=== PATIENT | female | born 1940 | race Caucasian/White ===

== ENCOUNTER 2020-06-27 05:46 | Day surgery (SDC) | payer MEDICARE, BC ==
[2020-06-19 14:15] LABS: BASOPHILS # (AUTO) 0.1 X10'3 (0-0.2); BASOPHILS % (AUTO) 1.3 % (0-1); EOSINOPHILS # (AUTO) 0.2 X10'3 (0-0.9); EOSINOPHILS % (AUTO) 3.4 % (0-6); LYMPHOCYTES # (AUTO) 0.8 X10'3 (1.1-4.8); LYMPHOCYTES % (AUTO) 13.9 % (21-51); MEAN CORPUSCULAR HEMOGLOBIN 31.7 PG (27.0-31.0); MEAN CORPUSCULAR VOLUME 93.2 FL (78-98); MEAN PLATELET VOLUME 8.4 FL (7.4-10.4); MONOCYTES # (AUTO) 0.3 X10'3 (0-0.9); MONOCYTES % (AUTO) 5.3 % (2-12); NEUTROPHILS # (AUTO) 4.2 X10'3 (1.8-7.7); NEUTROPHILS % (AUTO) 76.1 % (42-75); PRE OP HEMATOCRIT 46.5 % (35.0-45.0); PRE OP HEMOGLOBIN 15.8 g/dL (12.0-16.0); PRE OP PLATELET COUNT 201 X10'3 (140-440); RED BLOOD COUNT 4.99 X10'6 (4.20-5.60); RED CELL DISTRIBUTION WIDTH 13.6 % (11.5-14.5)
[2020-06-19 14:25] LABS: ALBUMIN 4.4 G/DL (3.4-5.0); ALKALINE PHOSPHATASE 63 IU/L (46-116); BLOOD UREA NITROGEN 30 MG/DL (7-18); BUN/CREATININE RATIO 20.4 (6.6-38.0); CALCIUM 11.4 MG/DL (8.5-10.1); CHLORIDE 103 MMOL/L (99-107); CREATININE 1.47 MG/DL (0.40-0.90); PRE OP ALT 60 U/L (30-65); PRE OP ANION GAP 12 (8-16); PRE OP AST 72 U/L (10-37); PRE OP BILIRUB, TOTAL 0.6 MG/DL (0.0-1.0); PRE OP GLUCOSE 192 MG/DL (70-104); PRE OP SODIUM 140 MMOL/L (135-145); TOTAL CARBON DIOXIDE 25.2 MMOL/L (24-32); TOTAL PROTEIN 8.7 G/DL (6.4-8.2); eGFR 34 ML/MIN
[~2020-06-27] VITALS: Ht 165.1 cm; Wt 102.2 kg
[2020-06-27] VITALS (7 sets, daily range): BP systolic 118–143; BP diastolic 69–86
[~2020-06-27 05:46] MED LIST: ACET-1133 PO; ALLO300T8 PO; ASPI-1265 PO; ATOR20TA PO; CELE-193 PO; DULO-31 PO; FENO160T4 PO; FLUT16SP26 BOTHNARES; FURO40TA4 PO; GABA-530 PO; LOSA25TA96 PO; MILK500C PO; MULT-381 PO; OMEG10006 PO; POTA-82 PO; VITA150T PO; famotidine 20mg tablet PO ONE; ringers solution, lacted 1,000 ML IV SCH
[2020-06-27] MEDS ORDERED: ceFAZolin 2gm in dextrose, iso 50 ML IV ONE (06:00)
[2020-06-27] MEDS ORDERED: BUPIVAcaine/PF 2.5 mg/ml (0.25%) 30ml vial ONE (06:36)
[2020-06-27] MEDS ORDERED: LIDOcaine 0.5% (5mg/ml) 50ml vial ONE (07:11)
[2020-06-27] MEDS ORDERED: ringers solution, lacted 1,000 ML IV SCH (07:38)
[2020-06-27] MEDS ORDERED: morphine 2 MG/ML inj. syringe IV PRN (07:40)
[2020-06-27] MEDS ORDERED: proCHLORperazine 10 MG/2 ml inj IV PRN (07:40)
[2020-06-27] MEDS ORDERED: morphine 4 MG/ML inj SYRINge IV PRN (07:40)
[2020-06-27] MEDS ORDERED: meperidine/PF 25mg/ml syringe IV PRN ×3 (07:40)
[2020-06-27] MEDS ORDERED: ondansetron/PF 4mg/2ml inj IV PRN (07:40)
[2020-06-27] MEDS ORDERED: fentaNYL/PF 50MCG/1 ML 2ML syringe ONE (07:48)
[2020-06-27] MEDS ORDERED: midazolam 2 mg/2 ml injection ONE (07:49)
[2020-06-27] MEDS ORDERED: propofol inj 20 ML IV ONE (08:51)
--- NOTE | 2020-06-27 08:57 | NUR ---
Received from OR via [facility], accompanied by Anesthesiologist DR BUCKLEY and report given by Anesthesiolgist. PATIENT A&OX4, DENIES PAIN, V/S WNL, NEUROVASCULAR CHECKS INTACT, 20G PIV LUE, SCD ON, DRESSING TO RIGHT WRIST CDI ELEVATED WITH ICEBAG APPLIED.
--- NOTE | 2020-06-27 09:57 | NUR ---
PATIENT A&OX4, DENIES PAIN, V/S WNL, NEUROVASCULAR CHECKS INTACT, 20G PIV LUE D/C, SCD OFF, DRESSING TO RIGHT WRIST CDI ELEVATED WITH ICEBAG APPLIED. I HAVE REVIEWED D/C INSTRUCTIONS WITH PATIENT AND FAMILY AND THEY HAVE VERBALIZED UNDERSTANDING. PATIENT D/C HOME WITH ALL BELONGINGS AND FAMILY GAVE TRANSPORT HOME. Pt has pain meds at home. Pt knows to wear O2 on way home because of her sleep apnea and to wear Bipap as soon as she arrives hoem. She has received extensive education on respiratory care.
== END 2020-06-27 09:57 | disposition home or self-care (01) ==
LOC: PAS 05:46
PROVIDERS: ATTEND Orthopaedic Surgery Hand Surgery
DX: G56.01 Carpal tunnel syndrome, right upper limb (principal); M65.331 Trigger finger, right middle finger; M65.341 Trigger finger, right ring finger; M18.0 Bilateral primary osteoarthritis of first carpometacarpal joints; M10.9 Gout, unspecified; G47.30 Sleep apnea, unspecified; F31.9 Bipolar disorder, unspecified; I27.20 Pulmonary hypertension, unspecified; E66.9 Obesity, unspecified; Z68.36 Body mass index [BMI] 36.0-36.9, adult; Z11.59 Encounter for screening for other viral diseases; Z79.899 Other long term (current) drug therapy; Z90.710 Acquired absence of both cervix and uterus; Z98.890 Other specified postprocedural states; Z95.5 Presence of coronary angioplasty implant and graft; Z88.5 Allergy status to narcotic agent
CPT/HCPCS: 25310; 25447; 26055; 36415; 64721; 80053; 82948; 85025; 93005; J2001; J2250; J2704; J3010; J3490; J7120; U0003; A4215; A4618; A6449; A7000

== ENCOUNTER 2021-04-03 07:15 | Day surgery (SDC) | payer MEDICARE, BC ==
[2021-03-27 15:33] LABS: BASOPHILS % (AUTO) 0.8 % (0-1); EOSINOPHILS # (AUTO) 0.1 X10'3 (0-0.9); LYMPHOCYTES # (AUTO) 0.7 X10'3 (1.1-4.8); LYMPHOCYTES % (AUTO) 14.3 % (21-51); MEAN CORPUSCULAR HEMOGLOBIN 31.7 PG (27.0-31.0); MEAN CORPUSCULAR HGB CONC 34.2 g/dL (33.0-36.5); MEAN CORPUSCULAR VOLUME 92.7 FL (78-98); MEAN PLATELET VOLUME 7.9 FL (7.4-10.4); MONOCYTES # (AUTO) 0.3 X10'3 (0-0.9); MONOCYTES % (AUTO) 6.4 % (2-12); NEUTROPHILS # (AUTO) 3.5 X10'3 (1.8-7.7); NEUTROPHILS % (AUTO) 75.5 % (42-75); PRE OP HEMATOCRIT 40.7 % (35.0-45.0); PRE OP HEMOGLOBIN 13.9 g/dL (12.0-16.0); PRE OP PLATELET COUNT 171 X10'3 (140-440); RED BLOOD COUNT 4.39 X10'6 (4.20-5.60); RED CELL DISTRIBUTION WIDTH 13.3 % (11.5-14.5)
[2021-03-27 15:54] LABS: ALBUMIN 3.9 G/DL (3.4-5.0); ALKALINE PHOSPHATASE 51 IU/L (46-116); BLOOD UREA NITROGEN 29 MG/DL (7-18); BUN/CREATININE RATIO 24.2 (6.6-38.0); CALCIUM 10.1 MG/DL (8.5-10.1); CHLORIDE 107 MMOL/L (99-107); PRE OP ALT 41 U/L (30-65); PRE OP ANION GAP 10 (8-16); PRE OP AST 40 U/L (10-37); PRE OP BILIRUB, TOTAL 0.4 MG/DL (0.0-1.0); PRE OP GLUCOSE 152 MG/DL (70-104); PRE OP POTASSIUM 4.1 MMOL/L (3.4-5.1); PRE OP SODIUM 141 MMOL/L (135-145); TOTAL CARBON DIOXIDE 24.1 MMOL/L (24-32); TOTAL PROTEIN 7.9 G/DL (6.4-8.2); eGFR 43 ML/MIN
[~2021-04-03] VITALS: Ht 167.6 cm; Wt 100.7 kg
[~2021-04-03 07:15] MED LIST changes: +BUPIVAcaine/PF 2.5mg/ml (0.25%) 10ml vial ONE; +METF-950 PO; +cefazolin/dext.iso 2gm/100ml IV ONE
[2021-04-03 07:30] VITALS: BP 120/73
[2021-04-03] MEDS ORDERED: fentaNYL/PF 50MCG/1 ML 2ML syringe ONE ×2 (09:39→10:52)
[2021-04-03] MEDS ORDERED: midazolam 1 mg/ML 2ml injection ONE (09:40)
[2021-04-03] MEDS ORDERED: LIDOcaine 1%/PF 5ML 10 MG/ML VIAL ONE (09:41)
[2021-04-03] MEDS ORDERED: propofol inj 20 ML IV ONE (09:41)
[2021-04-03] MEDS ORDERED: ondansetron/PF 4mg/2ml inj IV PRN (09:55)
[2021-04-03] MEDS ORDERED: ringers solution, lacted 1,000 ML IV SCH (09:55)
[2021-04-03] MEDS ORDERED: fentaNYL/PF 50MCG/1 ML 2ML syringe IV PRN (09:55)
[2021-04-03] MEDS ORDERED: HYDROmorphone/PF 0.2 MG/ML SYRINGE IV PRN ×2 (09:55)
[2021-04-03] MEDS ORDERED: LIDOcaine 0.5% (5mg/ml) 50ml vial ONE (10:01)
[2021-04-03] MEDS ORDERED: BUPIVAcaine/PF 2.5mg/ml (0.25%) 10ml vial ONE (10:11)
[2021-04-03 11:08] VITALS: BP 101/57
--- NOTE | 2021-04-03 11:08 | NUR ---
Received from OR via [facility] , accompanied by Anesthesiologist LIO and report given by Anesthesiolgist. PATIENT WITH 20G PIV IN RIGHT UE RUNNING LR AT 100. LEFT UE IN SPLINT AND WITH NO SENSATION TO FINGERS AND THUMB FROM NERVE BLOCK. DRESSING IS CDI AND VSS. Addendum: 04/03/21 at 1125 by Rolando Finnegan RN, RN Amended: Links added.
--- NOTE | 2021-04-03 11:18 | NUR ---
139 BG UPON ARRIVAL TO RR. Addendum: 04/03/21 at 1126 by Rolando Alvarez - JOHNNY RN Amended: Links added.
[2021-04-03 11:20] VITALS: BP 108/62
[2021-04-03 11:30] VITALS: BP 111/58
[2021-04-03 11:40] VITALS: BP 116/66
== END 2021-04-03 11:48 | disposition home or self-care (01) ==
LOC: PAS 07:15
PROVIDERS: ATTEND Orthopaedic Surgery Hand Surgery
DX: M18.12 Unilateral primary osteoarthritis of first carpometacarpal joint, left hand (principal); M65.332 Trigger finger, left middle finger; M65.312 Trigger thumb, left thumb; G47.33 Obstructive sleep apnea (adult) (pediatric); I10 Essential (primary) hypertension; G89.29 Other chronic pain; M10.9 Gout, unspecified; I25.10 Atherosclerotic heart disease of native coronary artery without angina pectoris; E11.9 Type 2 diabetes mellitus without complications; Z79.899 Other long term (current) drug therapy; Z79.82 Long term (current) use of aspirin; Z98.890 Other specified postprocedural states; Z90.710 Acquired absence of both cervix and uterus; Z95.5 Presence of coronary angioplasty implant and graft; Z88.5 Allergy status to narcotic agent
CPT/HCPCS: 25310; 25447; 26055; 36415; 80053; 82948; 85025; A6222; J2001; J2250; J2704; J3010; J3490; J7120; A4215; A4618; A6449

== ENCOUNTER 2023-04-08 15:51 | Emergency (ER) | payer MEDICARE, BC ==
[~2023-04-08] VITALS: Ht 165.1 cm; Wt 94.0 kg
[~2023-04-08 15:51] MED LIST changes: -BUPIVAcaine/PF 2.5mg/ml (0.25%) 10ml vial ONE; +METF-1203 PO; -METF-950 PO; +POTA-366 PO; -POTA-82 PO; -cefazolin/dext.iso 2gm/100ml IV ONE; -famotidine 20mg tablet PO ONE; -ringers solution, lacted 1,000 ML IV SCH
[2023-04-08 16:53] LABS: BASOPHILS % (AUTO) 0.3 % (0-1); EOSINOPHILS % (AUTO) 0.7 % (0-6); HEMATOCRIT 45.9 % (35.0-45.0); HEMOGLOBIN 15.3 g/dl (12.0-16.0); LYMPHOCYTES # (AUTO) 0.5 X10'3 (1.1-4.8); LYMPHOCYTES % (AUTO) 6.6 % (21-51); MEAN CORPUSCULAR HEMOGLOBIN 30.5 PG (27.0-31.0); MEAN CORPUSCULAR HGB CONC 33.3 g/dL (33.0-36.5); MEAN CORPUSCULAR VOLUME 91.6 FL (78-98); MEAN PLATELET VOLUME 8.9 FL (7.4-10.4); MONOCYTES # (AUTO) 0.2 X10'3 (0-0.9); MONOCYTES % (AUTO) 2.9 % (2-12); NEUTROPHILS # (AUTO) 6.3 X10'3 (1.8-7.7); NEUTROPHILS % (AUTO) 89.5 % (42-75); PLATELET COUNT 188 X10'3 (140-440); RED BLOOD COUNT 5.01 X10'6 (4.20-5.60); RED CELL DISTRIBUTION WIDTH 13.4 % (11.5-14.5); WHITE BLOOD COUNT 7.1 X10'3 (4.5-11.0)
[2023-04-08 16:55] LABS: ALANINE AMINOTRANSFERASE 33 U/L (12-78); ALBUMIN 4.4 G/DL (3.4-5.0); ALBUMIN/GLOBULIN RATIO 1.1 (1.1-1.5); ALKALINE PHOSPHATASE 57 IU/L (46-116); ANION GAP 14 (8-16); ASPARTATE AMINO TRANSFERASE 24 U/L (10-37); BILIRUBIN,TOTAL 0.7 MG/DL (0.1-1.0); BLOOD UREA NITROGEN 51 MG/DL (7-18); BUN/CREATININE RATIO 38.3 (10.0-20.0); CALCIUM 10.4 MG/DL (8.5-10.1); CHLORIDE 101 MMOL/L (99-107); CREATININE 1.33 MG/DL (0.40-0.90); GLUCOSE 201 MG/DL (70-104); POTASSIUM 4.2 MMOL/L (3.5-5.1); SODIUM 137 MMOL/L (135-145); TOTAL CARBON DIOXIDE 21.6 MMOL/L (24-32); TOTAL PROTEIN 8.5 G/DL (6.4-8.2); eGFR 38 ML/MIN
[2023-04-08 17:51] VITALS: BP 128/82
[2023-04-08 19:12] LABS: CLARITY,URINE CLEAR (Clear); COLOR,URINE YELLOW (Yellow); GLUCOSE, URINE NEGATIVE (Neg); KETONES,URINE NEGATIVE (Neg); LEUKOCYTE ESTERASE ,URINE NEGATIVE (Neg); NITRITES, URINE POSITIVE (Neg); OCCULT BLOOD,URINE NEGATIVE (Neg); PROTEIN,URINE NEGATIVE (Neg); UROBILINOGEN,URINE 0.2 E.U/dL (0.2-1.0)
[2023-04-08 19:25] LABS: UA COLLECTION TYPE CLN CATCH MIDSTREAM
[2023-04-08 19:26] LABS: BACTERIA,URINE 3+ /HPF (Neg); RBC,URINE NONE SEEN /HPF (0-2); SQUAMOUS EPITHELIAL CELL,UR FEW /LPF (FEW); WBC CLUMPS,URINE FEW /HPF (NEGATIVE)
[2023-04-08] MEDS ORDERED: CEFD300C3 PO (19:33)
[2023-04-08] MEDS ORDERED: cephalexin 500mg capsule PO ONE (19:35)
[2023-04-09] MEDS ORDERED: AMOX-117 PO (12:43)
== END 2023-04-08 19:46 | disposition home or self-care (01) ==
LOC: ER 15:51
DX: R07.89 Other chest pain (principal); N39.0 Urinary tract infection, site not specified; Z79.899 Other long term (current) drug therapy; Z79.1 Long term (current) use of non-steroidal anti-inflammatories (NSAID)
CPT/HCPCS: 36415; 71045; 80053; 81001; 83880; 84484; 85025; 87077; 87088; 87186; 93005; 99285

== ENCOUNTER 2024-01-31 17:12 | Emergency (ER) | payer MEDICARE, BC ==
[~2024-01-31] VITALS: Ht 154.9 cm; Wt 94.5 kg
[~2024-01-31 17:12] MED LIST changes: +LOSA-415 PO; -LOSA25TA96 PO
[2024-01-31 17:59] LABS: BASOPHILS % (AUTO) 0.3 % (0-1); EOSINOPHILS # (AUTO) 0.1 X10'3 (0-0.9); EOSINOPHILS % (AUTO) 2.3 % (0-6); HEMATOCRIT 47.4 % (35.0-45.0); HEMOGLOBIN 15.8 g/dl (12.0-16.0); LYMPHOCYTES # (AUTO) 0.8 X10'3 (1.1-4.8); LYMPHOCYTES % (AUTO) 17.8 % (21-51); MEAN CORPUSCULAR HEMOGLOBIN 30.6 PG (27.0-31.0); MEAN CORPUSCULAR HGB CONC 33.4 g/dL (33.0-36.5); MEAN CORPUSCULAR VOLUME 91.6 FL (78-98); MEAN PLATELET VOLUME 8.6 FL (7.4-10.4); MONOCYTES # (AUTO) 0.3 X10'3 (0-0.9); MONOCYTES % (AUTO) 5.8 % (2-12); NEUTROPHILS # (AUTO) 3.5 X10'3 (1.8-7.7); NEUTROPHILS % (AUTO) 73.8 % (42-75); PLATELET COUNT 230 X10'3 (140-440); RED BLOOD COUNT 5.17 X10'6 (4.20-5.60); RED CELL DISTRIBUTION WIDTH 13.4 % (11.5-14.5); WHITE BLOOD COUNT 4.7 X10'3 (4.5-11.0)
[2024-01-31 18:13] LABS: ALBUMIN/GLOBULIN RATIO 0.9 (1.1-1.5); ANION GAP 18 (8-16); BLOOD UREA NITROGEN 32 MG/DL (7-18); BUN/CREATININE RATIO 23.9 (10.0-20.0); CHLORIDE 100 MMOL/L (99-107); CREATININE 1.34 MG/DL (0.40-0.90); GLUCOSE 97 MG/DL (70-104); SODIUM 140 MMOL/L (135-145); TOTAL CARBON DIOXIDE 21.7 MMOL/L (24-32); TOTAL PROTEIN 8.5 G/DL (6.4-8.2); eCRCL 25 ML/MIN; eGFR 38 ML/MIN
[2024-01-31 18:20] LABS: LIPASE 72 U/L (16-77); PRO BRAIN NATRIURETIC PEPTIDE 102 PG/ML (0-450)
[2024-01-31 18:24] LABS: ALANINE AMINOTRANSFERASE 24 U/L (12-78); ALKALINE PHOSPHATASE 50 IU/L (46-116); ASPARTATE AMINO TRANSFERASE 36 U/L (10-37); BILIRUBIN,DIRECT 0.2 MG/DL (0-0.3); POTASSIUM 3.5 MMOL/L (3.5-5.1)
[2024-01-31] MEDS ORDERED: morphine 4 MG/ML inj SYRINge IV PRN (20:20)
[2024-01-31] MEDS: normal saline 1000ML IV soln IVB ONE (20:29)
[2024-01-31] MEDS: ondansetron/PF 4mg/2ml inj IV ONE (20:29)
[2024-01-31] MEDS: HYDROmorphone inj. 0.5 MG/0.5 ML DISP.SYRIN IV ONE (20:29)
[2024-01-31 20:52] LABS: OCCULT BLOOD STOOL NEGATIVE (Neg)
[2024-01-31] MEDS: normal saline 500ml IV soln 500 ML IV SCH (21:10)
[2024-01-31] MEDS ORDERED: HYDR-3965 PO (21:46)
[2024-01-31] MEDS ORDERED: ONDA4TAB12 PO (21:46)
[2024-01-31] MEDS ORDERED: AMOX-580 PO (21:46)
[2024-01-31] MEDS: piperacillin/tazo 4.5gm/100ml 100 ML IV ONE (22:10)
[2024-01-31 22:11] VITALS: BP 141/85; PULSE 93; RESP 20; TEMP 98.9; O2SAT 97
== END 2024-01-31 22:12 | disposition home or self-care (01) ==
LOC: ER 17:12
DX: K57.92 Diverticulitis of intestine, part unspecified, without perforation or abscess without bleeding (principal); I71.40 Abdominal aortic aneurysm, without rupture, unspecified; E11.9 Type 2 diabetes mellitus without complications; Z88.5 Allergy status to narcotic agent; Z79.899 Other long term (current) drug therapy; Z79.82 Long term (current) use of aspirin; Z79.2 Long term (current) use of antibiotics; Z90.710 Acquired absence of both cervix and uterus
CPT/HCPCS: 36415; 74176; 80048; 80076; 82272; 83690; 83880; 84484; 85025; 96361; 96374; 96375; 99285; J1170; J2405; J7030